=== PATIENT | female | born 1970 | race Caucasian/White ===

== ENCOUNTER 2023-08-09 16:04 | Outpatient (OUT) | payer OTHER, SELFPAY ==
[2023-08-09 16:31] LABS: Creatinine Urine Random 38.76 mg/dL (20.00-300.00); Microalbum Creatinine Ratio Ur 170.2 mg/g (0.0-29.9); Microalbumin Urine Random 6.6 mg/dL (<=30.0)
== END 2023-08-09 16:05 | disposition home or self-care (01) ==
LOC: LAB 16:04
DX: E11.65 Type 2 diabetes mellitus with hyperglycemia (principal)
CPT/HCPCS: 82043; 82570